=== PATIENT | female | born 1955 | race Caucasian/White ===

== ENCOUNTER 2020-12-12 09:28 | Outpatient (CLI) | payer MEDICARE, SELFPAY ==
[2020-12-12 09:43] VITALS: BMI 29.2
--- NOTE | 2020-12-12 10:17 | ECG_ITS ---
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 Interpretive Statements NAME OF STUDY: EXERCISE SESTAMIBI STRESS TEST INDICATION: [cad, ] EXERCISE DATA: The patient was exercised by Osbaldo protocol. Baseline heart rate was 77 beats per minute. Baseline blood pressure was 155/93 millimeters of mercury. Target heart rate was 131 beats per minute. Maximum heart rate achieved was 167, which was 107% of the maximum predicted heart rate. Maximum blood pressure was 200/79 millimeters of mercury. Total exercise time was 4 minutes 43 seconds. Maximum METs achieved was 7.0, maximum VO2 was 24.5. The reason for ending the test was completion of the protocol. The patient had shortness of breath during the procedure that resolved in the recovery phase. ELECTROCARDIOGRAM: BASELINE: Showed sinus rhythm, left bundle branch block EXERCISE: At the peak exercise level, [] No significant ST-T changes suggestive of ischemia noted. [] RECOVERY: During the recovery period, heart rate dropped appropriately. No significant ST-T changes in the recovery suggestive of ischemia noted. [] CONCLUSION: 1. Exercise capacity good. 2. Heart rate response was appropriate. 3. Blood pressure response was hypertensive 4. Symptoms not suggestive of ischemia. 5. Electrocardiogram portion of the stress test was not suggestive of ischemia. 6. Nuclear scan will be documented separately. Electronically Signed On 12-30-2020 18:03:16 CDT by Eduar Velazquez M.D. [email or web address]
--- NOTE | 2020-12-12 10:18 | NMCV_ITS ---
NM suhas perf SPECT r/s* [id number] Ilda Ratliff Age: 65 Gender: F : 1955 Exam Date: 12/12/2020 10:45 Ordering Phys: Eduar Velazquez M.D ([email or web address]) Technologist: LISY Dumont Exam Location: [facility] Indications: ASHD STRESS TEST [facility] IMAGE PROTOCOL Rest/Stress 1 Exercise Day Radiopharmaceutical Dose (mCi) Administration Site Administered by Rest: Tc-99m 10.8 IV LISY Dumont Sestamibi Stress:Tc-99m 32.4 IV LISY Dumont Sestamiqiana Rest: 12-Dec-2020 60 Discovery 630 Stress: 12-Dec-2020 30 Discovery 630 Radiopharmaceutical was injected at 100% maximum heart rate. Images obtained in supine and prone position. SPECT RESULTS Technical Quality: Good Raw Data Analysis: Breast attenuation Image Corrections: No attenuation or motion correction applied Summed Stress Score: 0 Summed Rest Score: 0 Summed Difference Score: 0 PERFUSION FINDINGS SPECT images demonstrate homogeneous tracer distribution throughout the myocardium. FUNCTIONAL RESULTS (calculated via Gated SPECT) Stress Image LV EF (%): 86 Stress EDV (mL):56 TID: 0.63 Stress ESV (mL):8 FUNCTIONAL FINDINGS: There is normal left ventricular systolic function. IMPRESSIONS 1. Normal myocardial perfusion imaging with no evidence of ischemia 2. LV systolic function is normal Eduar Velazquez MD (Electronically Signed) Final Date: 12 December 2020 15:51 S
[2020-12-12 11:54] VITALS: BP 140/70; PULSE 110
== END 2020-12-12 09:29 | disposition home or self-care (01) ==
LOC: CDL 09:31
PROVIDERS: Visit Provider Internal Medicine
DX: I25.10 Atherosclerotic heart disease of native coronary artery without angina pectoris (principal)
CPT/HCPCS: 78452; 93017; A9500

== ENCOUNTER → 2022-07-18 09:56 | Outpatient (BNVA) | payer MEDICARE, SELFPAY | PROVIDERS: PCP Nurse Practitioner; Visit Provider Internal Medicine Cardiovascular Disease | DX: I25.10 Atherosclerotic heart disease of native coronary artery without angina pectoris (principal); I10 Essential (primary) hypertension; E78.5 Hyperlipidemia, unspecified | CPT/HCPCS: 99213 ==

== ENCOUNTER → 2023-03-20 10:11 | Outpatient (BNVA) | payer MEDICARE, SELFPAY | PROVIDERS: PCP Nurse Practitioner; Visit Provider Internal Medicine Cardiovascular Disease | DX: I25.10 Atherosclerotic heart disease of native coronary artery without angina pectoris (principal); I10 Essential (primary) hypertension; E78.5 Hyperlipidemia, unspecified; I44.7 Left bundle-branch block, unspecified | CPT/HCPCS: 99213 ==

== ENCOUNTER → 2024-05-03 12:47 | Outpatient (BNVA) | payer MEDICARE, SELFPAY | PROVIDERS: PCP Nurse Practitioner; Visit Provider Internal Medicine Cardiovascular Disease | DX: I25.10 Atherosclerotic heart disease of native coronary artery without angina pectoris (principal); I10 Essential (primary) hypertension; E78.5 Hyperlipidemia, unspecified; I44.7 Left bundle-branch block, unspecified | CPT/HCPCS: 99213 ==